=== PATIENT | male | born 1990 | race Caucasian/White ===

== ENCOUNTER 2019-01-10 17:43 | Emergency (ER) | payer OTHER ==
[2019-01-10 18:09] VITALS: BMI 24.2
[2019-01-10 18:17] VITALS: BP 112/75; PULSE 81; RESP 18; TEMP 98.8; O2SAT 97
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
== END 2019-01-10 20:14 | disposition home or self-care (01) ==
LOC: C.ER 17:43
DX: S16.1XXA Strain of muscle, fascia and tendon at neck level, initial encounter (principal); V53.5XXA Driver of pick-up truck or van injured in collision with car, pick-up truck or van in traffic accident, initial encounter; Y92.410 Unspecified street and highway as the place of occurrence of the external cause
CPT/HCPCS: 96372; 99284; J1885